=== PATIENT | female | born 1995 | race Caucasian/White ===

== ENCOUNTER 2020-11-21 09:06 | Outpatient (REF) | payer OTHER, SELFPAY ==
[2020-11-21 11:34] LABS: TSH reflex Free T4 1.04 uIU/mL (0.32-4.0)
[2020-11-22 14:01] LABS: Follicle Stimulating Hormone 5.3 mIU/mL; Prolactin 7.3 ng/mL
[2020-11-25 20:51] LABS: Anti-Mullerian Hormone-Female 3.86 ng/mL (1.02-14.63)
[2020-11-26 22:52] LABS: Estradiol Ultra Sensitive 43 pg/mL
== END 2020-11-21 09:07 | disposition home or self-care (01) ==
LOC: HO.WFDLDS 09:06
PROVIDERS: PCP Hospitalist; Visit Provider Obstetrics & Gynecology
DX: N97.9 Female infertility, unspecified (principal)
CPT/HCPCS: 36415; 82397; 82670; 83001; 84146; 84443